=== PATIENT | female | born 1945 | race Caucasian/White ===

== ENCOUNTER → 2023-09-24 06:22 | Outpatient (REF) | payer MEDICARE, OTHER, SELFPAY | LOC: RCS 06:22 | PROVIDERS: ATTENDING PHYSICIAN Internal Medicine Cardiovascular Disease; FAMILY PHYSICIAN Family Medicine | DX: R06.09 Other forms of dyspnea (principal) | CPT/HCPCS: 78452; 93017; A9500 ==